=== PATIENT | male | born 1990 | race Caucasian/White ===

== ENCOUNTER → 2016-07-18 | Outpatient (CLI) | payer OTHER ==
[~2016-07-18] VITALS: Ht 188 cm; Wt 99.6 kg
[2016-07-18 15:06] VITALS: BP 130/71; PULSE 62; Ht 188 cm; Wt 99.6 kg
== END | disposition home or self-care (01) ==
LOC: C.NEUR 13:22
PROVIDERS: ATTEND Internal Medicine Pulmonary Disease
DX: F51.4 Sleep terrors [night terrors] (principal); G47.30 Sleep apnea, unspecified; R06.83 Snoring; G47.8 Other sleep disorders

== ENCOUNTER → 2016-08-31 | Outpatient (CLI) | payer OTHER ==
--- NOTE | 2016-09-01 06:16 | PAP/PSG TECHNICIAN REPORT ---
[facility] Operational Test Mechanic Polysomnogram Report Study name: None Report date: 09/01/2016 Study date: 08/31/2016 Referring Physician: DR. SHY MEDINA Name: KENYETTA DEGROOT Interpreting Physician: Glenn Quinones M.D. Date of : 1990 Operational Test Mechanic: Marian Palencia, PSGT. Sex: Male Age: 25 StudyType: PSG Weight: 219 lbs Height: 25 years, Height 6' 2" Neck Circum:17 inches BMI: 28.11 Medications: CELEXA 20 MG, CLONAZEPAM 0.5 MG. Patient History 25 YR. OLD MALE IN ROOM 5, PRESENTS TONIGHT WITH SNORING, UNREFRESHED SLEEP, AND WITNESSED APNEA. PT. STATES THAT HE WILL WAKE GASPING AT TIMES.PT. ALSO, STATES THAT HE HAS NIGHT TERRORS.NECK = 17 INCHES. Parameters Monitored NPSG: E1-M2, E2-M1, Fp1-M2, Fp2-M1, F3-M2, F4-M2, F4-M1, C3-M2, C4-M2, C4-M1, O1-M2, O2-M2, O2-M1, T3-M2, T4-M1, P3-M2, P4-M1, CHIN1, CHIN2, HR, EKG, Legs, PFLOW, SNOR, FLOW, CFLOW, Tidal Volume, THOR, ABDO, SpO2, PLTH, CPRESS, ETCO2 Wave, ETCO2, pH Sleep Architecture Sleep Stages Time at Lights Off 10:24:39 PM STAGES Time (min.) TST (%) Time at Lights On 5:25:39 AM Wake 156.5 -- Total Recording Time (TRT) 422.00 min. N1 29.0 11 Total Sleep Period (TSP) 289.5 min. N2 154.5 58 Total Sleep Time (TST) 264.5min. N3 15.5 6 Awake Time 157.5 min. REM 65.5 25 Wake after Sleep Onset 25.0 min. Sleep Efficiency (SE) 63 % Sleep Onset Latency (MAO) 131.5 min. Number of Stage 1 Shifts None Awakenings 7 Stage Changes 49 Number of REM periods 3 REM 65.5 25 REM Latency 99.5 min. NREM 199.0 75 Body Position Analysis Supine Right Left Side Prone Vertical Total Sleep Time (min.) 333.8 47.1 14.7 61.75 0.0 0.4 Total Sleep Time (%) 77% 18% 6% 23 0% N/A% Total Sleep Time REM (min.) 63.8 1.7 0.0 None 0.0 0.0 Total Sleep Time NREM (min.) 138.9 45.4 14.7 None 0.0 0.0 Intermittent Wake (min.) 131.1 9.0 16.0 None 0.0 0.4 Total Sleep Period (%) 75% None None None None None Arousals Myoclonus (PLM) * Events Count Index Events Count Index Spontaneous 25 6 Events Awake (PLMW) 3 1.2 Respiratory 7 1.6 Events Asleep w/ Arousal (PLMA) 23 5.2 PLM 23 5 Events Asleep w/o Arousal (PLMS) 125 28.4 Snoring 5 1 Total Asleep 148 33.6 Total 60 14 Total 151 22 Respiratory Analysis * CA OA MA CH H RERA Total Count 0 0 0 0 9 0 9 Index 0.0 0.0 0.0 0 2.0 0 2.0 Mean Duration 0.0 0.0 0.0 0.00 27.3 0.0 27.3 Longest Duration 0.0 0.0 0.0 0.00 0.0 0.0 39.6 Respiratory Event Summary Total Supine ~Supine Right Left Prone REM NREM Apneas Count 0 0 0 0 0 N/A 0 0 Index 0.0 0 0 0.0 0.0 N/A 0 0 Hypopneas (4% Desat) Count 9 9 0 0 0 N/A 1 8 Index 2.0 2.7 0 0.0 0.0 N/A 0.9 2.4 Apneas & All Hypopneas Count 9 9 0 0 0 N/A 1 8 Index 2.0 3 0 0 0 N/A 0.9 2.4 Respiratory Events (Electrical Installer+All Hyp+RERA) Count 9 9 0 0 0 N/A 1 8 Index 2.0 3 0 0.0 0.0 N/A 0.9 2.4 Respiratory Related Arousal Count 7 9 0 0 0 N/A 1 6 Index 1.6 2 0 0 0 N/A 1 2 Snoring Analysis Supine Right Left Prone REM NREM Total Snore duration 3.0 min Snores count 45 7 0 N/A 20 32 52 Snore mean duration 3.4 Sec Snores index 13 9 0 N/A 18.3 9.6 11.8 TST with snoring (%) 1.1% Desaturation Event Summary: Minimum %SpO2 Event Count Mean/Min/Max Duration(sec.) Desaturation Index % Time In Bed > 90 11 33.8 / 13.0 / 58.5 1.7 98.6 86 - 90 1 13.0 / 13.0 / 13.0 11.9 1.2 81 - 85 0 N/A 0.0 0.1 76 - 80 0 N/A 0.0 0.0 71 - 75 0 N/A 0.0 0.0 66 - 70 0 N/A 0.0 0.0 61 - 65 0 N/A 0.0 0.0 56 - 60 0 N/A 0.0 0.0 51 - 55 0 N/A 0.0 0.0 < 50 0 N/A 0.0 0.0 Total REM NREM Awake <50% 0.0 min. 0.0 min. 0.0 min. 0.0 min. 51 - 60% 0.0 min. 0.0 min. 0.0 min. 0.0 min. 61 - 70% 0.0 min. 0.0 min. 0.0 min. 0.0 min. 71 - 80% 0.0 min. 0.0 min. 0.0 min. 0.0 min. 81 - 90% 5.6 min. 2.9 min. 2.0 min. 0.6 min. 91 - 100% 399.2 min. 61.2 min. 193.7 min. 144.2 min. Average 94 94 94 94 Minimum SpO2 85 85 88 85 Desaturation Event Index 1.6 1.8 2.7 0.0 # Desat. Events below 89% 2 N/A 2 N/A Time(%) with Saturation below 89% 0.6 0.5 0.1 0.1 Time(min.) with Saturation below 89% 2.4 1.9 0.2 0.3 Time (mins) REM (mins) NREM (mins) % of TST SpO2 Below 90% 9 2 N7 1.2 SpO2 Below 88% 1 0 0 1 Heart Rate Analysis Min (bpm) Max (bpm) Average (bpm) Awake 45 150 57 NREM 47 127 55 REM 48 83 57 Overall 47 127 56 Supplemental O2 Values Minimum O2 level: None Value Start Time End Time Operational Test Mechanic Comments PSG Study Mr. Degroot slept in the right, left, and supine positions. No cardiac arrhythmia. PLM's noted. No bruxism noted. Snoring was noted and scored as a two on a scale of 1 through 5. (0=no snoring, 5=snoring loud enough to be heard through a closed door or down the [address]) Mr. Degroot awoke to use the restroom one time during the night. Mr. Degroot stated, I did not sleep as well as I do when I am in my own bed. The final report will be interpreted and signed by a sleep physician. The completed physician report will then be placed in the patient medical record. Pt. had a long onset to sleep, he did take a Clonazepam 0.5 mg after two hours of trying. Fragmented sleep seen throughout study. Clonazepam may be the cause of little stage three displayed. Therapy (cm H2O) 0 TIB (min.) 421.0 TST (min.) 264.5 Sleep Onset (min.) 131.5 REM Onset From Sleep (min.) 99.5 Sleep Efficiency % 63 Wakefulness (%) 37 Wakefulness (min.) 157.5 NREM 1 (%) 11 NREM 1 (min.) 29.0 NREM 2 (%) 58 NREM 2 (min.) 154.5 NREM 3 (%) 6 NREM 3 (min.) 15.5 REM (%) 25 REM (min.) 65.5 # Arousals 60 Arousal Index 14 # Snore 52 Snore Index 11.8 AHI 2.0 AHI Supine 3 AHI Non-Supine 0 NREM AHI 2.4 REM AHI 0.9 RDI 2.0 # Obstructive Apnea 0 # Central Apnea 0 # Mixed Apnea 0 # Hypopneas 9 RERAs 0 Total Respiratory Events 9 Time Below SpO2 89% (min.) 2.1 Mean NREM SpO2 (%) 94 Mean REM SpO2 (%) 94 Mean Sleep SpO2 (%) 94 Min NREM SpO2 (%) 88 Min REM SpO2 (%) 85 Position Supine (min.) 333.8 Position Non-supine (min.) 61.8 LM Index Sleep 33.6 LM Index NREM 24.7 LM Index REM 60.5 Mean Heart Rate (bpm) 56 Min Heart Rate (bpm) 47
--- NOTE | 2016-09-01 13:02 | POLYSOMNOGRAPH REPORT ---
CLINICAL DATA: A 25-year-old male with BMI of 28.[address] Ari Truong for evaluation of snoring, unrefreshing sleep, apneic episodes, and night terrors. SLEEP ARCHITECTURE: Total recording time was 422 minutes. Total sleep period was 289.5 minutes. Total sleep time was 264.5 minutes divided between 199 minutes of non-REM sleep and 65.5 minutes of REM sleep. Sleep onset latency was markedly delayed at 131.5 minutes. REM latency was 99.5 minutes. Sleep efficiency was 63%. Wake after sleep onset was 25 minutes. Sleep consisted of stage N1 11%, N2 58%, N3 6%, and REM 25%. AROUSAL DATA: Sixty arousals were recorded for an index of 14 per hour. Twenty three were due to PLMS events. Twenty four were spontaneous. PLM DATA: Moderately elevated limb movements during sleep were noted. There were 140 limb movements during sleep noted for an index of 32.6 per hour with arousal index of 5.2 per hour. RESPIRATORY DATA: No significant sleep apnea/hypopnea was noted. The AHI was 2. There were 9 hypopneic episodes. The mean duration of hypopnea was 27.3 seconds. OXIMETRY DATA: No significant hypoxemia was seen. The oxygen lisbeth was 85% during REM. The mean saturation was 94%. Time below 88% was 1 minute. EKG: Heart rates ranged from 47 to 127 beats per minute. No arrhythmias were noted. CHIEF ENTERPRISE ARCHITECT'S COMMENTS: The patient slept in the right, left and supine positions. He had markedly delayed onset to sleep and then eventually did take a clonazepam 0.5 mg after trying to fall asleep for 2 hours. Fragmented sleep was seen throughout the study. Snoring was mild, rated 2 on a scale of 1-5. IMPRESSION: No evidence of clinically significant sleep apnea/hypopnea or nocturnal hypoxemia. There are mildly to moderately elevated limb movements during sleep of unclear clinical significance. There was no obvious explanation for sleep terrors seen. RECOMMENDATIONS: The patient should continue to practice good sleep hygiene and use medications as needed for his sleep terrors. [facility]
== END | disposition home or self-care (01) ==
LOC: C.NEUR 20:00
PROVIDERS: ATTEND Internal Medicine Pulmonary Disease
DX: F51.4 Sleep terrors [night terrors] (principal); G47.30 Sleep apnea, unspecified; R06.83 Snoring; G47.8 Other sleep disorders

== ENCOUNTER → 2016-09-05 | Outpatient (CLI) | payer OTHER ==
[~2016-09-05] VITALS: Ht 188 cm; Wt 96.2 kg
[2016-09-05 13:04] VITALS: BP 131/78; PULSE 86; Ht 188 cm; Wt 96.2 kg
== END | disposition home or self-care (01) ==
LOC: C.NEUR 12:30
PROVIDERS: ATTEND Internal Medicine Pulmonary Disease
DX: F51.4 Sleep terrors [night terrors] (principal); G47.8 Other sleep disorders; F32.9 Major depressive disorder, single episode, unspecified